=== PATIENT | female | born 2000 | race Asian ===

== ENCOUNTER 2024-08-03 21:10 | Emergency (ER) | payer OTHER, SELFPAY ==
[2024-08-03 21:23] VITALS: BP 121/75; PULSE 83; RESP 16; TEMP 37.2; O2SAT 98; BMI 26.5
--- NOTE | 2024-08-03 21:28 | ED_ITS ---
HPI - General Adult General Chief complaint: Vaginal Bleeding Stated complaint: back pain and cramps Time Seen by Provider: 08/03/24 21:14 History of Present Illness HPI narrative: cramps lower abd, lower back pain. states 3 weeks of period bleeding . tylenol yesterday. 23-year-old young woman presenting to the emergency department with boyfriend with concern of cramping lower abdominal pain and back pain. She is on the phone with her parents when I enter the room. Historically has 9 day periods. Historically fairly regular menstrual timing. Last had labs drawn 2 months ago. She does take iron supplementation. Does report that there may be a question of PCOS. She has been having a period now for about 3 weeks. She notes using heavy pads and then overnight using and Attends of some sort. She is not feeling lightheaded or short of breath. Today just pain got really bad and terrible back cramps. Just feels like she can not even stand up straight. Fever reported. Last took some Tylenol yesterday. Reports an allergy to ibuprofen when she was younger such that the swelled in her face. Concern expressed of some potential as well per conversation with parents. With urine collection here later reports that there was some stinging. The may be she should be checked for a ?bacterial infection?. Sounds like hemoglobin was 11 something about 2 months ago Related Data Home Medications ?Medication ?Instructions ?Recorded ?Confirmed albuterol sulfate 90 mcg/actuation 2 puff inhalation Q4-6H PRN 09/03/23 09/03/23 aerosol inhaler wheezing bupropion HCl 150 mg tablet,12 hr 150 mg PO QAM 09/03/23 09/03/23 sustained-release (Wellbutrin SR) multivitamin with iron (Daily 1 tab PO QDAY 09/03/23 09/03/23 Vites/Iron tablet) Previous Rx's ?Medication ?Instructions ?Recorded medroxyprogesterone 10 mg tablet 10 mg PO TID 10 days #30 tabs 08/03/24 (Provera) metronidazole 500 mg tablet 500 mg PO BID 7 days #14 tabs 08/03/24 Allergies Allergy/AdvReac Type Severity Reaction Status Date / Time ibuprofen Allergy Verified 09/03/23 10:51 Review of Systems Status of ROS: Reports: 6 or more systems reviewed and unremarkable except as noted in History and below Exam Narrative: Exam Narrative: Pleasant. Does seem uncomfortable generally and with transitions. Breathing easily. Heart in regular rate and rhythm. Lungs appear to be clear. Very tender across the low pelvis/suprapubic area. No masses appreciated. Well- perfused peripherally. Mucous membranes look normal; not particularly pale. Const: Vital Signs, click to edit/add: Vital Signs - 24 hr 08/03/24 21:23 Temperature 99.0 F Pulse Rate [Pulse Oximeter] 83 Respiratory Rate 16 Blood Pressure [Ri ght Upper Arm] 121/75 Pulse Oximetry 98 Oxygen Delivery Me thod Room Air Documenting provider has reviewed patient's vital signs: yes Course Vital Signs Vital signs: Initial Vital Signs Temperature 99.0 F 08/03/24 21:23 Temperature Source Temporal Artery Scan 08/03/24 21:23 Pulse Rate 83 08/03/24 21:23 Respiratory Rate 16 08/03/24 21:23 Blood Pressure 121/75 08/03/24 21:23 Blood Pressure Mean 90 08/03/24 21:23 Blood Pressure Position Sitting 08/03/24 21:23 Pulse Oximetry 98 08/03/24 21:23 Oxygen Delivery Method Room Air 08/03/24 21:23 Vital Signs Temperature 99.0 F 08/03/24 21:23 Pulse Rate 83 08/03/24 21:23 Respiratory Rate 16 08/03/24 21:23 Blood Pressure 121/75 08/03/24 21:23 Pulse Oximetry 98 08/03/24 21:23 Oxygen Delivery Method Room Air 08/03/24 21:23 Temperature 99.0 F 08/03/24 21:23 Pulse Rate 78 08/03/24 23:46 Respiratory Rate 16 08/03/24 23:46 Blood Pressure 118/80 08/03/24 23:46 Pulse Oximetry 99 08/03/24 23:46 Oxygen Delivery Method Room Air 08/03/24 23:46 Medications Administered Medications: Discontinued Medications Generic Name Dose Route Start Last Admin Trade Name Freq PRN Reason Stop Dose Admin Acetaminophen 1,000 mg 08/03/24 21:58 08/03/24 22:07 Acetaminophen 500 Mg Tablet PO 08/03/24 21:59 1,000 mg ONCE ONE Administration Medroxyprogesterone Acetate 10 mg 08/03/24 23:16 08/03/24 23:35 Medroxyprogesterone 5 Mg Tablet PO 08/03/24 23:17 10 mg ONCE ONE Administration Metronidazole 500 mg 08/03/24 23:21 08/03/24 23:35 Metronidazole 500 Mg Tablet PO 08/03/24 23:22 500 mg ONCE ONE Administration Medical Decision Making MDM Narrative Medical decision making narrative: We discussed potential options for pain management. He challenge not to have NSAIDs available in this circumstance I think. Further she says there is addic tion present in her family and so would not want opiates. We settled on acetaminophen. Given here in the ER. Anticipating need for progesterone supplementation. Vitals look good however, as she is been bleeding for 3 weeks, would consider checking hemoglobin. This might be helpful as a baseline going forward. I suspect it will be low normal. Urinalysis does not indicate infection and hCG is negative. Admittedly with dysuria symptoms might be that she has BV or yeast vaginitis or Trichomonas. Hemoglobin is 12 0.2 She can self-collect a wet prep. This is positive for clue cells though less than 20%. She would like treatment for BV. Overall seems stable to improved during time in the ER. I do not believe any further workup is necessary at this time. Did discuss this case in with OB on-call with consideration of needed follow-up. In agreement with medroxyprogesterone with a slightly different dosing than I had originally proposed. Initial dose of medroxyprogesterone in the emergency department along with metronidazole due to excessive quantity as dispensed [facility] Prescription sent. See patient discharge plan for further discussion Stay well-hydrated. Can take up to 1000 mg of acetaminophen per dose. Since I had to send 1 prescription into the pharmacy and we had strange quantities of the other medication in [facility], I sent both prescriptions to your pharmacy. Prescribing Provera (medroxyprogesterone) and metronidazole from your pharmacy. You received 10 mg of medroxyprogesterone and 500 mg of metronidazole here in the emergency department. [facility]. Be seen sooner for bleeding through 1 overnight pad an hour for 2 consecutive hours, increasing shortness of breath or lightheadedness, associated fever. Lab Data Labs: Lab Results 08/03/24 08/03/24 08/03/24 Range/Units 21:28 22:08 22:29 Hgb 12.2 (12.0-16.0) gm/dL Urine Color Yellow (Yellow) Urine Appearance Slightly Cloudy A (Clear) Urine pH 7.0 (5.0-8.5) Ur Specific [place] 1.020 (1.000-1.030) Urine Protein Negative (Negative) Urine Glucose (UA) Negative (Negative) Urine Ketones Negative (Negative) Urine Blood 1+ A (Negative) Urine Nitrite Negative (Negative) Urine Bilirubin Negative (Negative) Urine Urobilinogen 0.2 (0.2-1.0) Ur Leukocyte Esterase Negative (Negative) Urine RBC 0-2 (0-2) Urine WBC 0-2 (0-5) Ur Squamous Epith Cells Few (None-Few) Urine Bacteria Few A (None) Urine HCG, Qual Negative (Negative) Vaginal Trichomonas No Trichomonas Seen (None Seen) Vaginal Yeast No Yeast Seen (None Seen) Vaginal Clue Cells <20% Clue Cells Seen A (None Seen) Discharge Plan Discharge Clinical Impression: Dysmenorrhea, Menorrhagia, Bacterial vaginosis Patient Disposition: Home w/ Parent or Adult Condition: Stable Additional Instructions: Stay well-hydrated. Can take up to 1000 mg of acetaminophen per dose. Since I had to send 1 prescription into the pharmacy and we had strange quantities of the other medication in [facility], I sent both prescriptions to your pharmacy. Prescribing Provera (medroxyprogesterone) and metronidazole from your pharmacy. You received 10 mg of medroxyprogesterone and 500 mg of metronidazole here in the emergency department. Would consider follow-[facility] with [facility]. Be seen sooner for bleeding through 1 overnight pad an hour for 2 consecutive hours, increasing shortness of breath or lightheadedness, associated fever. Prescriptions: New medroxyprogesterone [Provera] 10 mg tablet 10 mg PO TID 10 Days Qty: 30 0RF metronidazole 500 mg tablet 500 mg PO BID 7 Days Qty: 14 0RF No Action albuterol sulfate 90 mcg/actuation HFA aerosol inhaler 2 puff inhalation Q4-6H PRN (Reason: wheezing) bupropion HCl [Wellbutrin SR] 150 mg tablet sustained-release 12 hr 150 mg PO QAM multivitamin with iron [Daily Vites/Iron] Tablet 1 tab PO QDAY Follow Up/Referrals: Provider,Not a Local [Primary Care Provider] - Stand Alone Forms: [facility] Info Instructions
[2024-08-03 21:46] LABS: Appearance Urine Slightly Cloudy (Clear); Bilirubin Urine Negative (Negative); Blood Urine 1+ (Negative); Color Urine Yellow (Yellow); Glucose Urine Negative (Negative); Ketones Urine Negative (Negative); Leukocyte Esterase Urine Negative (Negative); Nitrite Urine Negative (Negative); Protein Urine Negative (Negative); Urobilinogen Urine 0.2 (0.2-1.0)
[2024-08-03 21:52] LABS: Bacteria Urine Few; RBC Urine 0-2 (0-2); Squamous Epithelial Cell Urine Few (None-Few); WBC Urine 0-2 (0-5)
[2024-08-03] MEDS: ACETAMINOPHEN 500 MG TABLET 1000 MG PO (22:07)
[2024-08-03 22:17] LABS: Hemoglobin* 12.2 gm/dL (12.0-16.0)
[2024-08-03 22:43] LABS: Clue Cells <20% Clue Cells Seen (None Seen); Trichomonas No Trichomonas Seen (None Seen); Yeast No Yeast Seen (None Seen)
[2024-08-03 23:33] LABS: Ur HCG Qualitative* Negative (Negative)
[2024-08-03] MEDS: metroNIDAZOLE 500 MG TABLET PO (23:35)
[2024-08-03] MEDS: MEDROXYPROGESTERONE 5 MG TABLET 10 MG PO (23:35)
[2024-08-03 23:46] VITALS: BP 118/80; PULSE 78; RESP 16; O2SAT 99
== END 2024-08-03 23:47 | disposition home or self-care (01) ==
PROVIDERS: Emergency Provider Family Medicine
DX: N76.0 Acute vaginitis (principal); N94.6 Dysmenorrhea, unspecified; N92.0 Excessive and frequent menstruation with regular cycle
CPT/HCPCS: 36415; 81001; 81025; 85018; 87086; 87210; 99284; A9270

== ENCOUNTER 2024-09-15 08:35 | Outpatient (CLI) | payer OTHER, SELFPAY | END 2024-09-15 08:36 | disposition home or self-care (01) | PROVIDERS: Visit Provider Physician Assistant | DX: N92.6 Irregular menstruation, unspecified (principal); N92.0 Excessive and frequent menstruation with regular cycle; R63.5 Abnormal weight gain; L65.9 Nonscarring hair loss, unspecified; L68.0 Hirsutism | CPT/HCPCS: 83498; 84146; 84270; 84402; 84403; 84443; 85240; 85245; 85246; 85384; 85610; 85730 ==

== ENCOUNTER 2024-09-25 10:09 | Outpatient (CLI) | payer OTHER, SELFPAY ==
--- NOTE | 2024-09-25 10:15 | CRLHL7_ITS ---
For Patients: As a result of the Century Cures Act, medical imaging exams and procedure reports are released immediately into your electronic medical record. You may view this report before your referring provider. If you have questions, please contact your health care provider. INDICATION: IRREGULAR Menstruation COMPARISON: None. TECHNIQUE: 2D perry-scale and color Doppler images were acquired of the pelvis using a transabdominal and transvaginal approach. Transvaginal imaging performed to better visualize the endometrial stripe and ovaries. FINDINGS: Sonographic images demonstrate a normal size and smooth outer contour of the uterus. Uterus measures 6.5 cm in length by 2.6 cm in AP diameter by 3.6 cm in transverse dimension. The myometrium has a normal uniform echotexture. The endometrial lining appears normal and measures 8 mm in composite thickness. The right ovary measures 3.7 x 3.5 x 3.5 cm in size and the left ovary measures 3.6 x 2.8 x 3.2 cm. The ovaries demonstrate normal arterial and venous blood flow on color Doppler analysis. There are no suspicious fluid collections within the cul-de-sac. Multiple ovarian follicles are present bilaterally. The right ovarian volume is 24 cc. The left ovarian volume is 17 cc. IMPRESSION: Endometrial thickness 8 millimeters. No endometrial fluid or uterine fibroid. Ovarian volumes are increased and there are multiple ovarian follicles bilaterally. Dictated by Warner Moncada MD @ 09/25/2024 12:30:28 PM (Electronically Signed)
== END 2024-09-25 10:10 | disposition home or self-care (01) ==
LOC: US 10:09
PROVIDERS: Visit Provider Physician Assistant
DX: N92.6 Irregular menstruation, unspecified (principal); R93.89 Abnormal findings on diagnostic imaging of other specified body structures; N83.02 Follicular cyst of left ovary; N83.01 Follicular cyst of right ovary
CPT/HCPCS: 76830; 76856